=== PATIENT | female | born 1955 | race Caucasian/White ===

== ENCOUNTER 2018-04-15 07:41 | Inpatient (IN) ==
--- NOTE | 2018-04-15 09:17 | PROVIDER DOCUMENTATION ---
HPI-General Adult - General Chief Complaint: Fall Stated Complaint: FALL Time Seen by Provider: 04/15/18 08:48 Source: patient Allergies/Adverse Reactions: Patient Allergies Allergy/AdvReac Type Severity Reaction Status Date / Time sulfamethoxazole Allergy Intermediate POTASSIUM Verified 04/15/18 08:09 [From ] LEVELS trimethoprim [From ] Allergy Intermediate POTASSIUM Verified 04/15/18 08: 09 LEVELS Home Medications: Home Medication List Medication Instructions Recorded Confirmed Last Taken Type Cephalexin [Keflex] 500 mg PO BID #14 capsule 09/17/12 Unknown Rx - History of Present Illness -Gen Adult Nature of Presenting Problems: Presents by EMS after call, c/o pain to both knees R>L. Says that when she stood up, her knees just gave way. Has been feeling weak for 2 weeks, has fallenn several times. No head trauma, no LOC, no headache. No CP, no palpitations, no SOB, No N/V. Says that she buried her yesterday. Admits to not eating or drinking much. During exam, when bruising to chest was noted, said that began after fell sev days ago- a day or 2 later, was small, then got worse, and whole breast became purple Location of Pain/Injury: reports: other (bilat knees) Pain Radiation: reports: no radiation Quality of Pain: reports: aching Timing: reports: still present Modifying Factors: improves with: palpation Associated Symptoms: reports: weakness Similar Symptoms Previously?: Yes Recently seen or treated by another doctor?: No Review of Systems - Adult - REVIEW OF SYSTEMS - ADULT Constitutional: reports: see HPI Eyes: reports: no symptoms reported Ears, Nose, Mouth & Throat: reports: no symptoms reported Cardiovascular: reports: no symptoms reported Respiratory: reports: no symptoms reported Gastrointestinal: reports: no symptoms reported Genitourinary: reports: no symptoms reported Musculoskeletal: reports: see HPI Integumentary: reports: see HPI Neurological: reports: no symptoms reported Psychiatric: reports: no symptoms reported Endocrine: reports: no symptoms reported Hematologic/Lymphatic: reports: no symptoms reported Allergic/Immunologic: reports: no symptoms reported Past History - Adult - PAST MEDICAL HISTORY-ADULT Review of Records: reports: Medications Reviewed Major Childhood Illnesses: reports: denies history Physical Exam-General - PHYSICAL EXAM-ADULT Initial Vital Signs Reviewed: Yes - CONSTITUTIONAL General Appearance: appears well, alert, no apparent distress - EYES Eyes: PERRL/EOMI, pink conjunctivae - HEAD, EARS, NOSE, MOUTH & THROAT HENMT: normocephalic/atraumatic, moist mucous membranes, normal ENT inspection, pharynx normal - NECK Neck: full range of motion, supple, other (mild tenderness @ C7 area) - RESPIRATORY Respiratory: lungs clear, normal breath sounds, other (tenderness, ecchymosis to ant chest. R breast is purple) - CARDIOVASCULAR Cardiovascular: normal peripheral pulses, regular rate, rhythm, no gallop - GASTROINTESTINAL (ABDOMEN) Abdominal Exam: non tender, soft - MUSCULOSKELETAL Back Exam: normal inspection, no CVA tenderness, no vertebral tenderness Extremity: other (swelling, ecchymosis , tender below R patella. Has tenderness to bilat patella as well) - SKIN Integumentary: normal color, normal turgor, warm/dry, ecchymosis (see above notes) - NEUROLOGIC Neurologic: bowling ball molder II-XII nml as tested, grossly normal, no motor/sensory deficits - PSYCHIATRIC Psych/Mental Status: normal mood/affect, normal thought content, normal thought process, oriented x 3 Progress - PLAN OF CARE/RESULTS Progress/Plan/Lab Results: Vital Signs - 8 hr 04/15/18 08:04 Temperature 97.5 F L Pulse Rate 92 H Respiratory Rate 13 Blood Pressure 133/87 O2 Sat by Pulse Oximetry 100 Orders Category Date Time Status ED: Orthostatic Vital Signs (E as directed Care 04/15/18 09:07 Active Nursing- Obtain EKG once Care 04/15/18 09:05 Active CHEST-1 VIEW [RAD] Stat Exams 04/15/18 09:05 Ordered KNEE 3 VIEWS LEFT [RAD] Stat Exams 04/15/18 09:05 Ordered KNEE 3 VIEWS RIGHT [RAD] Stat Exams 04/15/18 09:05 Ordered CBC WITH DIFF [HEME] Stat Lab 04/15/18 09:05 Uncollected COMPREHENSIVE METABOLIC PANEL [CHEM] Stat Lab 04/15/18 09:05 Uncollected PROTIME WITH INR [COAG] Stat Lab 04/15/18 09:05 Uncollected PTT [COAG] Stat Lab 04/15/18 09:05 Uncollected EKG [EKG] Stat Ther 04/15/18 09:05 Ordered Result Diagrams: 04/15/18 09:17 04/15/18 09:17 - EKG 1 Time of EKG reading by physician:: 09:28 EKG Read and Signed by:: Reinaldo Hopkins EKG Interpretation (*Must complete 3 of following elements*): Abnormal Rate: 87 Rhythm: a fib QRS: RBB, other (LAFB) ST Wave: normal - XRAY 1 XRAY Study: Chest Impression: Normal 2 XRAY Study: Knee (Right) Impression: Abnormal (arthritic changes) 3 XRAY: Left XRAY Study: Knee (prox L fib fx, arthritic changes) - CONSULTS/PCP/HOSPITALIST Notification #1 *Consult/PCP/Hospitalist*: Shama Time Discussed: 15:00 Consult Disposition: Admit Departure - Departure Date of Disposition Decision: 04/15/18 Time of Disposition Decision: 10:21 DIAGNOSIS: Fall Qualifiers: Encounter type: initial encounter Qualified Code(s): W19.XXXA - Unspecified fall, initial encounter Contusion of right knee Qualifiers: Encounter type: initial encounter Qualified Code(s): S80.01XA - Contusion of right knee, initial encounter Left fibular fracture Qualifiers: Encounter type: initial encounter Fibula location: proximal Fracture type: closed Fracture morphology: other fracture Qualified Code(s): S82.832A - Other fracture of upper and lower end of left fibula, initial encounter for closed fracture Anemia Qualifiers: Anemia type: other cause Other causes of anemia: acute posthemorrhagic Qualified Code(s): D62 - Acute posthemorrhagic anemia Disposition: ADMITTED INPATIENT 09 Certified Medical Emergency: Emergent Condition: Stable Referrals and Follow-Ups: Kristopher Sesay MD [Primary Care Provider] - - Critical Care Note This patient required my direct & personal management of CC.: No Attestation - Physician/ APRIL Attestation Patient care was provided by Advanced Practice Provider:: No The physician spent face to face time with patient:: Yes Advanced Practice Provider documentation review:: Supervising physician onsite and consulted in the evaluation and care of this patient. The physician did have a face to face encounter with the patient.
[2018-04-15 09:39] LABS: BASO# 0.01 X1000 (0.0-0.2); BASO% 0.2 % (0.0-0.8); EOS# 0.15 X1000 (0.0-0.7); EOS% 2.5 % (0.0-10.0); HEMATOCRIT 24.1 % (37.0-47.0); HEMOGLOBIN 7.4 g/dL (12.0-16.0); LYMPH# 0.87 X1000 (1.2-3.4); LYMPH% 14.6 % (20.5-51.1); MCH 28.9 PG (27-31); MCHC 30.7 g/dL (33-37); MCV 94.1 FL (81-99); MONO# 0.49 X1000 (0.11-0.59); MONO% 8.2 % (1.7-9.3); MPV 9.8 FL (7.4-10.4); NEUT# 4.43 X1000 (1.4-6.5); NEUT% 74.5 % (42.2-75.2); PLT 249 X1000 (130-400); RBC 2.56 XMIL (4.2-5.4); RDW 13.3 % (11.5-14.5); WBC 5.95 X1000 (4.8-10.8)
[2018-04-15 10:00] LABS: INR 3.52; PROTIME 37.7 Seconds (11.0-16.0); PTT 46.8 Seconds (22.3-41.8)
[2018-04-15 10:05] LABS: ALB/GLOB RATIO 1.1; ALBUMIN 3.6 g/dL (3.5-5.0); CALCIUM 8.6 mg/dL (8.8-10.2); POTASSIUM 4.7 mmol/L (3.5-5.1); TOTAL BILIRUBIN 1.26 mg/dL (0.20-1.00); TOTAL PROTEIN 6.8 g/dL (6.3-8.3)
--- NOTE | 2018-04-15 10:13 | Diag Imaging Result Doc PS360 ---
EXAM: KNEE 3 VIEWS RIGHT HISTORY: fell TECHNIQUE: Right knee, three views COMPARISON: None. FINDINGS: No fracture. No dislocation. Prominent joint space narrowing. There is bony remodeling of the femoral condyles and tibial plateau. IMPRESSION: No acute bony injury. Severe arthritis. Electronically signed by Fredo London 04/15/2018 10:10 AM
--- NOTE | 2018-04-15 10:14 | Diag Imaging Result Doc PS360 ---
EXAM: KNEE 3 VIEWS LEFT HISTORY: fell TECHNIQUE: Left knee three views COMPARISON: 07/13/2011 the right knee. FINDINGS: There is a fracture to the proximal fibula. Minimal displacement. No dislocation. There is severe joint space narrowing with bony remodeling of the femoral condyles and tibial plateau. IMPRESSION: Proximal fibula fracture. Severe arthritis. Electronically signed by Fredo London 04/15/2018 10:12 AM
--- NOTE | 2018-04-15 10:16 | EKG Report ---
Test Performed on : 04/15/2018 09:18:39 AM Test Reason : syncope Blood Pressure : / mmHG Vent. Rate : 087 BPM Atrial Rate : 065 BPM P-R Int : 000 ms QRS Dur : 162 ms QT Int : 462 ms P-R-T Axes : 000 -47 014 degrees QTc Int : 555 ms Atrial fibrillation. Right bundle branch block Left anterior fascicular block Bifascicular block Abnormal ECG When compared with ECG of 22-JUL-2011 01:27, Atrial fibrillation. has replaced Sinus rhythm. Vent. rate has increased BY 31 BPM Left anterior fascicular block is now present Unconfirmed Result
--- NOTE | 2018-04-15 10:16 | Diag Imaging Result Doc PS360 ---
EXAM: CHEST-1 VIEW HISTORY: fell, syncope TECHNIQUE: Portable upright chest COMPARISON: 07/13/2011 FINDINGS: The lungs are well expanded. No contusion. No pneumothorax. The heart is mildly enlarged. The vessels are not distended. There are no infiltrates. No effusion identified. IMPRESSION: No injury. Electronically signed by Fredo London 04/15/2018 10:14 AM
[2018-04-15] MEDS ORDERED: NS 1,000 ML IV ONE (10:36)
[2018-04-15] MEDS ORDERED: MORPHINE IV PRN (10:36)
[2018-04-15] MEDS ORDERED: ZOFRAN PO PRN (10:36)
[2018-04-15] MEDS: NORCO-7.5 PO PRN ×2 (17:01→23:42)
[2018-04-15 20:03] LABS: HEMATOCRIT 27.6 % (37.0-47.0); HEMOGLOBIN 8.5 g/dL (12.0-16.0)
[2018-04-15] MEDS: ATIVAN PO SCH (21:13)
[2018-04-15] MEDS: SSD CREAM TOP SCH (21:14)
[2018-04-15] MEDS: BUSPAR PO SCH (21:14)
--- NOTE | 2018-04-16 01:43 | HISTORY AND PHYSICAL ---
CHIEF COMPLAINT: Weakness. HISTORY OF PRESENT ILLNESS: Ms. Mathew is a 63-year-old white female patient complaining of pain in both knees. The pain started early childhood special educator. Today, the patient went to the bathroom and while coming back the patient claimed her legs got weak and she fell on her knee. She started having pain in both of her knees, moderate pain, more pain with walking. The patient was also complaining of fall a days ago in a similar way when she was going to the bathroom and her legs got weak and she fell on her knee. Recently her , the patient was not feeling well. Oral intake was poor. The patient went to the emergency room, her blood count revealed hemoglobin of 7.4, hematocrit of 24.1. Electrolytes did reveal acute kidney injury, with a BUN of 47 and creatinine of 2. Because of her weakness, anemia and acute kidney injury, the patient also had a significant bruise cheryl and ecchymosis on the right breast and chest wall, the patient is morbidly obese we decided to admit the patient for further care. The patient denied any head injury. No fever. She did have chills. No runny nose, stuffy nose, sinus drainage. Denied any dysphagia or odynophagia. No unusual cough or expectoration. No vague abdominal pain. No nausea or vomiting. Denied any diarrhea, blood or mucus in the stool. Arthritic pain in the knee, at times in the lower back. The patient had significant ecchymosis and bruise cheryl on the right breast and the chest wall. No further history available at this time. ALLERGIES: Sulfa and Bactrim. PAST MEDICAL HISTORY: Significant for hypertension, paroxysmal atrial fibrillation, osteoarthritis, morbid obesity, gastritis, stasis dermatitis, anemia, chronic kidney disease. The patient had bariatric surgery done in the past. SOCIAL HISTORY: . Nonsmoker. Denied alcohol or substance abuse. Needs minimal assistance in activities of daily living. FAMILY HISTORY: Noncontributory. PHYSICAL EXAMINATION: GENERAL: Elderly white female patient, morbidly obese, in mild distress. VITAL SIGNS: Blood pressure on admission 186/84, pulse 84, respirations 23, temperature 98 degrees. SKIN: The patient does have ecchymosis and bruise cheryl on the right chest wall and right breast. The patient had bruise cheryl on the knee. HEENT: Head is atraumatic and normocephalic. Catlett conjunctivae. Anicteric sclerae. Extraocular muscle movement normal. Fundus cannot be penetrated. Good oral hygiene. No tonsillopharyngeal congestion or exudate. Ears and nose benign. NECK: Supple. No JVD, thyromegaly or lymphadenopathy. CHEST: Bibasilar crepitation. No rales. CARDIOVASCULAR: S1 and S2 heard, 2/6 systolic murmur at the apex. ABDOMEN: Soft, globular. Bowel sounds present. EXTREMITIES: No cyanosis, clubbing. Disuse atrophy of the lower limbs. Evidence of stasis dermatitis in both the legs. Crepitation of both the knee joints. ENVIRONMENTAL TECHNICAL OFFICER: Alert, awake. Answering questions fairly well. Able to move all 4 limbs. LABORATORY DATA: Hemoglobin 11.4, hematocrit 24.1, WBC count 5.95, platelet count 249,000, PT/INR was 3.52, PTT is 46.8. Electrolytes: BUN 47, creatinine was 2, calcium 8.6. IMAGING: Her x-ray of the knee revealed right knee severe arthritis. Left knee proximal fibula fracture and severe arthritis. Chest x-ray no pneumothorax, no contusion. CONSIDERATION: 1. The patient admitted with acute blood-loss anemia, weakness most likely due to anemia multifactorial, anemia of chronic disease and blood loss anemia. 2. Acute on chronic kidney disease. 3. Hypertension. 4. Frequent falls. 5. Osteoarthritis. 6. Gastritis. 7. Paroxysmal atrial fibrillation. PLAN: The overall plan was discussed at length with the patient and se is in agreement. We will admit the patient. Blood transfusion, gentle hydration, telemetry monitoring. Continue home medicine. The patient does have a history of depression, we will continue her antidepressant. cc: Kristopher Sesay MD
--- NOTE | 2018-04-16 02:47 | CONSULTATION ---
DATE OF CONSULTATION: 04/15/2018 HISTORY OF PRESENT ILLNESS: The patient reported to the emergency department today complaining of knee pain. She states she transferred from her power chair and her knee gave way today when she transferred. She has been feeling weak for about 2 weeks. She has had several falls in that time span. She denies chest pain, shortness of breath, nausea, vomiting, and palpitations. She denies headaches and loss of consciousness. Emergency department performed x-rays of the knee and it shows a proximal left fibular fracture. ALLERGIES: The patient is allergic to Bactrim. REVIEW OF SYSTEMS: A 14-point review of systems was performed and listed in HPI. PAST MEDICAL HISTORY: 1. 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 2. Diabetes. 3. High blood pressure. 4. Stasis dermatitis. 5. Atrial fibrillation. 6.Gastritis 7. Obesity 8. CKD 9. Depression PHYSICAL EXAMINATION: General: The patient is awake, alert and oriented. HEENT: Head is normocephalic and atraumatic. Mucous membranes are moist. Neck: Supple. Respiratory: There is equal chest expansion. Cardiovascular: There is normal regular rate and rhythm. Gastrointestinal: Abdomen is soft and nontender. Extremities: The left knee is mildly swollen. There is mild lateral joint line tenderness. There is mild tenderness near the proximal fibula. There is a questionable Errol's sign. There is a negative Sara test. There is notable swelling to the bilateral lower extremities. There is a negative Homans sign at this time bilaterally. There is good pedal pulses. There is a mild amount of redness noted to the left lower extremity. ASSESSMENT: Left proximal fibular fracture. PLAN: We will plan on nonoperative treatment and consult PT for WBAT LLE. She can follow up in the office in about 2 weeks for follow up x-rays. Thanks for the consult. Dictated by FLORI Parson for Mike Zhang MD cc: FLORI Parson MD Bharat K. Vakharia, MD MTDD
[2018-04-16] MEDS ORDERED: PNEUMOVAX 23 IM ONE (04:42)
[2018-04-16 06:14] LABS: BASO# 0.01 X1000 (0.0-0.2); BASO% 0.2 % (0.0-0.8); EOS% 4.3 % (0.0-10.0); HEMATOCRIT 25.9 % (37.0-47.0); LYMPH# 1.23 X1000 (1.2-3.4); LYMPH% 26.2 % (20.5-51.1); MCH 28.8 PG (27-31); MCHC 30.9 g/dL (33-37); MCV 93.2 FL (81-99); MONO% 8.5 % (1.7-9.3); NEUT# 2.86 X1000 (1.4-6.5); NEUT% 60.8 % (42.2-75.2); PLT 244 X1000 (130-400); RBC 2.78 XMIL (4.2-5.4); RDW 14.6 % (11.5-14.5)
[2018-04-16 06:27] LABS: INR 3.7; PROTIME 39.2 Seconds (11.0-16.0)
[2018-04-16 06:50] LABS: AGAP 8; ALBUMIN 3.1 g/dL (3.5-5.0); ALKALINE PHOSPHATASE 68 U/L (32-104); BUN 38 mg/dL (8-22); CALCIUM 8.3 mg/dL (8.8-10.2); CHLORIDE 108 mmol/L (98-107); CHOLESTEROL 110 mg/dL (0-200); COSMO 288; CREATININE 1.5 mg/dL (0.5-0.9); ESTIMATED GFR 35; GLUCOSE 94 mg/dL (70-104); GOT 19 U/L (10-30); GPT 8 U/L (10-36); HDL 38 mg/dL (45-65); LDL 59 mg/dL; MAGNESIUM 1.7 mg/dL (1.5-2.7); POTASSIUM 4.3 mmol/L (3.5-5.1); SODIUM 140 mmol/L (136-145); TCO2 24 mmol/L (25-35); TOTAL BILIRUBIN 0.92 mg/dL (0.20-1.00); TOTAL PROTEIN 6.1 g/dL (6.3-8.3); TRIGLYCERIDES 65 mg/dL (35-135); VLDL 13 mg/dL
[2018-04-16 06:53] LABS: HEMOGLOBIN A1C 5.3 % (4.8-6.0)
[2018-04-16 06:56] LABS: FREE T4 1.55 ng/dL (0.93-1.70)
[2018-04-16] MEDS: SYNTHROID PO SCH (06:57)
[2018-04-16 06:59] LABS: TSH 5.46 uIUmL (0.27-4.20)
[2018-04-16] MEDS: MYCOSTATIN POWDER TOP SCH (09:00)
[2018-04-16] MEDS: BUSPAR PO SCH ×2 (09:25→21:59)
[2018-04-16] MEDS: NORCO-7.5 PO PRN ×2 (09:25→23:50)
[2018-04-16] MEDS: CORDARONE PO SCH (09:25)
[2018-04-16] MEDS: ATIVAN PO SCH ×2 (09:25→21:59)
[2018-04-16] MEDS: CELEXA PO SCH (09:25)
[2018-04-16] MEDS: NORVASC PO SCH (09:25)
[2018-04-16] MEDS: SSD CREAM TOP SCH ×2 (09:26→22:01)
--- NOTE | 2018-04-16 09:28 | PROGRESS NOTE ---
DATE: 04/16/2018 SUBJECTIVE: The patient is a 63-year-old female who is 1 day status post fall sustaining a left proximal fibular fracture. The patient does have severe degenerative arthritis and multiple medical problems. She uses a power chair for mobilization and does have limited mobility. PHYSICAL EXAMINATION: The patient's right knee has an old subacute ecchymosis along the anteromedial aspect of the knee. She has diffuse tenderness to palpation. Left knee has diffuse tenderness throughout the knee as well. Compartments are soft. ASSESSMENT: 1. Left proximal fibular fracture. 2. Osteoarthritis bilateral knees. PLAN: At this point, we will treat patient symptomatically and allow her to weight bear as tolerated. I will recommend a repeat x-ray in 10-14 days. cc: MD Kristopher Montanez MD
--- NOTE | 2018-04-16 11:49 | PROGRESS NOTE ---
DATE: 04/16/2018 SUBJECTIVE: Ms. Mathew, who is a 63-year-old, obese white female has a fracture of the left Proximal tibia and has osteoarthritis in both knees. She was given 2 units of packed RBCs yesterday. Hemoglobin today is 8 g; it has dropped from 8.5 to 8 g. We are going to repeat her CBC in the morning. White count is 4.7. She has renal failure with BUN of 38 and creatinine of 1.5. She is anemic. She has chronic kidney disease. At present, her vital signs are stable. She had some bleeding in the right chest wall including the right breast. Her lungs are clear. Heart sounds are normal. She will repeat her electrolytes, as well as CBC tomorrow. cc: MD Kristopher Soto MD
[2018-04-16 17:47] LABS: URINE SOURCE CLEAN CATCH
[2018-04-16 17:51] LABS: BILIRUBIN URINE NEGATIVE (NEGATIVE); BLOOD URINE NEGATIVE (NEGATIVE); COLOR YELLOW; GLUCOSE URINE NEGATIVE (NEGATIVE); KETONE URINE NEGATIVE (NEGATIVE); LEUKOCYTES URINE SMALL (NEGATIVE); NITRITE URINE POSITIVE (NEGATIVE); PH URINE 5.5; PROTEIN URINE TRACE mg/dL (NEGATIVE); SP GRAVITY URINE 1.022; TURBIDITY URINE CLEAR (CLEAR); UR EPITHELIAL CELLS <10 /HPF (<10); URINE BACTERIA 4+ /HPF; URINE RBC <10 /HPF (<10); URINE WBC <10 /HPF (<10); UROBILINOGEN URINE 2 mg/dL (NORMAL)
[2018-04-17] MEDS: SYNTHROID PO SCH ×2 (05:42→06:55)
[2018-04-17 06:46] LABS: BASO# 0.01 X1000 (0.0-0.2); BASO% 0.2 % (0.0-0.8); EOS# 0.21 X1000 (0.0-0.7); EOS% 4.7 % (0.0-10.0); HEMATOCRIT 27.7 % (37.0-47.0); HEMOGLOBIN 8.3 g/dL (12.0-16.0); LYMPH# 1.24 X1000 (1.2-3.4); LYMPH% 27.9 % (20.5-51.1); MCH 28.2 PG (27-31); MCV 94.2 FL (81-99); MONO# 0.45 X1000 (0.11-0.59); MONO% 10.1 % (1.7-9.3); MPV 9.9 FL (7.4-10.4); NEUT# 2.54 X1000 (1.4-6.5); NEUT% 57.1 % (42.2-75.2); PLT 265 X1000 (130-400); RBC 2.94 XMIL (4.2-5.4); RDW 14.5 % (11.5-14.5); WBC 4.45 X1000 (4.8-10.8)
[2018-04-17 06:48] LABS: CALCIUM 8.3 mg/dL (8.8-10.2); CREATININE 1.3 mg/dL (0.5-0.9); POTASSIUM 4.4 mmol/L (3.5-5.1)
[2018-04-17] MEDS: NORVASC PO SCH (09:33)
[2018-04-17] MEDS: BUSPAR PO SCH ×2 (09:33→20:21)
[2018-04-17] MEDS: CORDARONE PO SCH (09:33)
[2018-04-17] MEDS: CELEXA PO SCH (09:33)
[2018-04-17] MEDS: NORCO-7.5 PO PRN ×2 (09:37→20:20)
[2018-04-17] MEDS: ATIVAN PO SCH ×2 (09:37→20:21)
--- NOTE | 2018-04-17 11:59 | PROGRESS NOTE ---
DATE: 04/17/2018 Ms. Mathew is doing well except for some pain in the leg, generalized weakness. Her vital signs are stable. She has severe anemia. White count is 4.45, hemoglobin is 8.3, hematocrit 27.7. I am going to repeat the lab values again in the morning. cc: MD Kristopher Soto MD
[2018-04-17] MEDS: SSD CREAM TOP SCH ×2 (13:30→20:21)
[2018-04-17] MEDS: MYCOSTATIN POWDER TOP SCH ×3 (16:15→20:21)
[2018-04-18] MEDS: SYNTHROID PO SCH ×2 (05:53→06:12)
[2018-04-18 06:11] LABS: BASO# 0.01 X1000 (0.0-0.2); BASO% 0.2 % (0.0-0.8); EOS# 0.27 X1000 (0.0-0.7); EOS% 5.8 % (0.0-10.0); HEMATOCRIT 28.4 % (37.0-47.0); HEMOGLOBIN 8.5 g/dL (12.0-16.0); LYMPH# 1.27 X1000 (1.2-3.4); LYMPH% 27.5 % (20.5-51.1); MCH 28.3 PG (27-31); MCHC 29.9 g/dL (33-37); MCV 94.7 FL (81-99); MONO# 0.41 X1000 (0.11-0.59); MONO% 8.9 % (1.7-9.3); MPV 9.6 FL (7.4-10.4); NEUT# 2.66 X1000 (1.4-6.5); NEUT% 57.6 % (42.2-75.2); PLT 281 X1000 (130-400); RDW 14.4 % (11.5-14.5); WBC 4.62 X1000 (4.8-10.8)
[2018-04-18 06:28] LABS: CALCIUM 8.2 mg/dL (8.8-10.2); CREATININE 1.5 mg/dL (0.5-0.9); POTASSIUM 4.5 mmol/L (3.5-5.1)
[2018-04-18] MEDS ORDERED: LOVENOX SUBQ SCH (06:45)
--- NOTE | 2018-04-18 06:55 | PROGRESS NOTE ---
DATE: 04/18/2018 SUBJECTIVE: Ms. Mathew is feeling better. The patient does have pain in the knee and leg, and at times unsteady gait. It is hard for the patient to get up and walk. No nausea or vomiting. Denied unusual shortness of breath. No dysuria. Denied abdominal pain. The patient does have knee pain. No unusual bleeding. Urine culture growing gram-negative rods. OBJECTIVE: Vital signs: Noted. Neck: Supple. No JVD. Lungs: Bilateral good air entry present. Cardiovascular system: S1 and S2 heard. 2/6 systolic murmur at the apex. Abdomen: Soft, globular. Bowel sounds present. Crepitation of both knee joints. The patient does have bruise cheryl on the legs and stasis dermatitis of both legs. Central nervous system: Alert, awake. Able to move all 4 limbs. Answering questions fairly well. ASSESSMENT AND PLAN: Patient admitted with acute on chronic blood-loss anemia and chronic kidney disease. She had fracture of the left fibula, osteoarthritis of the knee, atrial fibrillation, found to have urinary tract infection, hypothyroidism, and situational depression. The patient lives at home by herself. I think she will be benefited from short-term rehab as her recently. She needs help to get up and walk. I am going to recommend short-term rehab with her limitations of new fracture and weakness. The patient does have a large bruise cheryl on the chest wall. I am going to treat her UTI and continue the rest of the treatment with close observation. Start patient back on her Coumadin and start her on iron supplement. Overall plan discussed with the patient and she is in agreement. cc: Kristopher Sesay MD
[2018-04-18] MEDS: ROCEPHIN 1 GM in NS 50 ML IV SCH (08:12)
[2018-04-18] MEDS: NORVASC PO SCH (09:21)
[2018-04-18] MEDS: ATIVAN PO SCH ×2 (09:22→22:39)
[2018-04-18] MEDS: BUSPAR PO SCH ×2 (09:22→22:39)
[2018-04-18] MEDS: CELEXA PO SCH (09:23)
[2018-04-18] MEDS: CORDARONE PO SCH (09:23)
[2018-04-18] MEDS: MYCOSTATIN POWDER TOP SCH (09:24)
[2018-04-18] MEDS: SSD CREAM TOP SCH ×2 (09:24→22:40)
[2018-04-18] MEDS: ICAR-C PO SCH ×2 (09:32→22:39)
[2018-04-18] MEDS: ELIQUIS PO SCH ×2 (09:32→22:39)
[2018-04-18] MEDS ORDERED: COUMADIN PO SCH (21:00)
[2018-04-18] MEDS: NORCO-7.5 PO PRN (22:39)
[2018-04-19] MEDS: SYNTHROID PO SCH (06:25)
[2018-04-19] MEDS: NORCO-7.5 PO PRN ×2 (06:25→22:00)
[2018-04-19] MEDS ORDERED: DULCOLAX PR ONE (06:35)
[2018-04-19] MEDS ORDERED: MILK OF MAGNESIA PO ONE (06:35)
--- NOTE | 2018-04-19 07:41 | DISCHARGE SUMMARY ---
ADMISSION DATE: 04/15/2018 DISCHARGE DATE: FINAL DISCHARGE DIAGNOSES: 1. Blood-loss anemia. 2. Urinary tract infection. 3. Fracture of left fibula. 4. Osteoarthritis. 5. Paroxysmal atrial fibrillation. 6. Morbid obesity. 7. Hypothyroidism. 8. Constipation. 9. Chronic kidney disease. 10. History of gastric bypass in the past. 11. Situational depression. HOSPITAL COURSE: Ms. Mathew is a 63-year-old, white, female patient admitted with status post fall. The patient was feeling weak. The patient had multiple bruise peres. She had pain in her knee. Not able to get up by herself. She recently lost her . Her hemoglobin was low. The patient was symptomatic. We evaluated the patient and decided to admit her. The patient received 2 units of packed RBC. Her hemoglobin and hematocrit improved. Patient is feeling little stronger. Patient had a large bruise cheryl on the chest wall on the right side, also on her breast and both the knees. She had significant arthritis of both the knees. Found to have fracture of the left fibula. The patient was admitted to a telemetry bed. She was started on antibiotics. Patient lives by herself. I think she will be benefited from short-term rehab. The patient is in agreement. She was complaining of being constipated. I started patient on MiraLAX. Overall, patient received maximum benefit of hospitalization and I am planning to discharge her to a skilled nursing for rehab. PHYSICAL EXAMINATION: Vital Signs: Her vital signs noted. Neck: Supple. No JVD. Lungs: Bibasilar crepitation. Heart: S1 and S2 heard. Abdomen: Soft, globular. Bowel sounds present. LIGHTNING ROD INSTALLER: Alert, awake. Answering questions fairly well. DIAGNOSTIC DATA: Chest x-ray, lungs are well-expanded. No contusion. No pneumothorax. Heart was mildly enlarged. No injury. LABORATORY DATA: Done yesterday, hemoglobin 8.5, hematocrit 28.4, WBC count 4.62, platelet count 281,000. BUN 34, creatinine 1.5. Patient does have chronic kidney disease. Urinalysis, 4+ bacteria. Urine culture grew E. coli which was sensitive to Macrobid. Overall, her x-ray on her knee did reveal severe arthritis. The one on her left knee revealed proximal fibula fracture. PLAN: Overall, patient received maximum benefit of hospitalization. The patient has a hard time coming to the office for a prothrombin time check. I changed her Coumadin to Eliquis. We will treat her with Macrobid. Gave her pain medicine. Fall precautions. Follow up with orthopedics as scheduled. Physical therapy. Overall discharge condition satisfactory. Discharge plan discussed with the patient. She is in agreement. cc: Kristopher Sesay MD
[2018-04-19] MEDS: NORVASC PO SCH (09:38)
[2018-04-19] MEDS: ATIVAN PO SCH ×2 (09:38→23:24)
[2018-04-19] MEDS: BUSPAR PO SCH ×2 (09:38→22:00)
[2018-04-19] MEDS: ELIQUIS PO SCH ×2 (09:38→22:00)
[2018-04-19] MEDS: CORDARONE PO SCH (09:38)
[2018-04-19] MEDS: ICAR-C PO SCH ×2 (09:38→22:00)
[2018-04-19] MEDS: CELEXA PO SCH (09:38)
[2018-04-19] MEDS: ROCEPHIN 1 GM in NS 50 ML IV SCH (09:39)
[2018-04-19] MEDS: MYCOSTATIN POWDER TOP SCH (10:26)
[2018-04-19] MEDS: SSD CREAM TOP SCH (10:26)
[2018-04-20] MEDS: ATIVAN PO SCH ×2 (00:47→10:16)
[2018-04-20] MEDS: SSD CREAM TOP SCH ×2 (00:47→12:01)
[2018-04-20] MEDS: SYNTHROID PO SCH (06:13)
--- NOTE | 2018-04-20 07:09 | PROGRESS NOTE ---
DATE: 04/20/2018 SUBJECTIVE: Ms. Mathew's discharge was canceled because of unavailability of a rehab place. The patient is doing fair. Yesterday, she was able to sit on the side of the bed and move her leg. She did have a good bowel movement. She denied any fever or chills. Oral intake is fairly well. No nausea or vomiting. No diarrhea. The patient still had difficulty getting up. OBJECTIVE: Vital Signs: Blood pressure 116/59, pulse 73, respirations 20, temperature 98.4 degrees. Neck: Supple. No JVD. Lungs: Bibasilar crepitations. Heart: S1 and S2 heard. A 2/6 systolic murmur at the apex. Abdomen: Soft, globular. Bowel sounds present. LEAD SECTION SUPERVISOR: Alert, awake. Able to move all 4 limbs. PROBLEM LIST: 1. Diffuse osteoarthritis, more so of the knee. 2. Fracture of the left fibula, upper end. 3. Morbid obesity. 4. Blood-loss anemia. 5. The patient does have a urinary tract infection. 6. Chronic kidney disease. 7. Paroxysmal atrial fibrillation. PLAN: We will continue current treatment. I am going to discharge the patient as soon as a rehab bed is available. Encouraged weight reduction. Fall precautions. cc: Kristopher Sesay MD
[2018-04-20] MEDS: ROCEPHIN 1 GM in NS 50 ML IV SCH (08:18)
[2018-04-20] MEDS ORDERED: NS 500 ML ONE (08:20)
[2018-04-20] MEDS: BUSPAR PO SCH (10:16)
[2018-04-20] MEDS: NORVASC PO SCH (10:16)
[2018-04-20] MEDS: ELIQUIS PO SCH (10:16)
[2018-04-20] MEDS: CELEXA PO SCH (10:16)
[2018-04-20] MEDS: CORDARONE PO SCH (10:16)
[2018-04-20] MEDS: ICAR-C PO SCH (10:16)
[2018-04-20 11:33] VITALS: BP 121/63
[2018-04-20] MEDS: MYCOSTATIN POWDER TOP SCH (12:00)
[2018-04-20] MEDS: NORCO-7.5 PO PRN (13:28)
== END 2018-04-20 16:15 | DRG 812 ==
LOC: SUPCPDRO → ED 07:41 → EDIPHOLD 11:07 → 4N 21:25
PROVIDERS: ADMIT Internal Medicine; ATTEND Internal Medicine
CPT/HCPCS: 36430; 71010; 71045; 73562; 80048; 80053; 80061; 81001; 83036; 83735; 84439; 84443; 85014; 85018; 85025; 85610; 85730; 86850; 86900; 86901; 86920; 87077; 87088; 87186; 90732; 93005; 94761; 97110; 97162; 97530; 99285; A9270; J0696; J7030; J7040; P9016

== ENCOUNTER 2018-05-01 01:27 | Inpatient (IN) ==
--- NOTE | 2018-05-01 03:39 | PROVIDER DOCUMENTATION ---
HPI-General Adult - General Chief Complaint: Weakness Stated Complaint: weakness Time Seen by Provider: 05/01/18 03:02 Source: patient, old records Allergies/Adverse Reactions: Patient Allergies Allergy/AdvReac Type Severity Reaction Status Date / Time sulfamethoxazole Allergy Intermediate POTASSIUM Verified 04/15/18 08:09 [From ] LEVELS trimethoprim [From ] Allergy Intermediate POTASSIUM Verified 04/15/18 08: 09 LEVELS Home Medications: Home Medication List Medication Instructions Recorded Confirmed Last Taken Type Amiodarone HCl 200 mg PO DAILY 04/15/18 04/16/18 04/14/18 History Amlodipine Besylate 5 tab PO DAILY 04/15/18 04/16/18 04/14/18 History Buspirone HCl 15 tab PO BID 04/15/18 04/16/18 04/14/18 History Citalopram Hydrobromide 10 mg PO DAILY 04/15/18 04/16/18 04/14/18 History [Citalopram HBr] Levothyroxine [Synthroid] 50 mcg PO DAILY 04/15/18 04/16/18 04/14/18 History Nystatin 1 applicatn TOP DAILY 04/15/18 04/16/18 04/14/18 History Silver Sulfadiazine Cream [Ssd 1 applicatn TOP BID 04/15/18 04/16/18 04/15/18 History Cream] Apixaban [Eliquis] 5 mg PO BID tablet 04/19/18 Unknown Rx Hydrocodone/Acetaminophen [[place] 1 each PO TID PRN #30 tablet 04/19/18 Unknown Rx 7.5-325 Tablet] Iron Carbonyl/Ascorbic Acid 1 each PO BID tablet 04/19/18 Unknown Rx [Icar-C] Nitrofurantoin [place]/Macrocryst 100 mg PO BID #12 capsule 04/19/18 Unknown Rx [Macrobid] - History of Present Illness -Gen Adult Nature of Presenting Problems: 63 yo terribly obese WF apparently suffered a left tibia fracture on Apr 15 , was transferred to rehab but signed out yesterday. Shortly after arriving home she became very week to the point that she had to be helped to the bathroom by her son. She nearly fell a second time prompting a call to EMS. She has a history of morbid obesity and in fact weighted 529 punds at one time., She has had several SVTs and now has an IVC filter and was on Coumadin for 10 years but this was changed to Eliquis 5 mg bid a week ago Review of Systems - Adult - REVIEW OF SYSTEMS - ADULT Constitutional: reports: weight loss Eyes: reports: no symptoms reported Ears, Nose, Mouth & Throat: reports: no symptoms reported Cardiovascular: reports: see HPI. denies: chest pain, edema, heart murmur, irregular heart rate Respiratory: reports: no symptoms reported, dyspnea on exertion. denies: chronic cough Gastrointestinal: reports: no symptoms reported Genitourinary: reports: no symptoms reported Musculoskeletal: reports: no symptoms reported Integumentary: reports: no symptoms reported Neurological: reports: no symptoms reported Psychiatric: reports: no symptoms reported Endocrine: denies: cold intolerance Hematologic/Lymphatic: reports: easy bruising Allergic/Immunologic: reports: no symptoms reported Past History - Adult - PAST MEDICAL HISTORY-ADULT Review of Records: reports: Old Records Reviewed, Nursing Assessment Review, Medications Reviewed Major Childhood Illnesses: reports: denies history Musculoskeletal: reports: arthritis, orthopedic injury, other (Unable to walk due to arthritis) Physical Exam-General - PHYSICAL EXAM-ADULT Initial Vital Signs Reviewed: Yes - CONSTITUTIONAL General Appearance: appears well, alert, no apparent distress - EYES Eyes: PERRL/EOMI, pink conjunctivae - HEAD, EARS, NOSE, MOUTH & THROAT HENMT: normocephalic/atraumatic, moist mucous membranes, dental decay - NECK Neck: non-tender, full range of motion - RESPIRATORY Respiratory: chest non-tender, lungs clear, normal breath sounds - CARDIOVASCULAR Cardiovascular: normal peripheral pulses, regular rate, rhythm, no edema - GASTROINTESTINAL (ABDOMEN) Abdominal Exam: normal bowel sounds, non tender, soft - GENITOURINARY Rectal Exam: normal exam Hemoccult Exam: other (black stool, heme pending) - MUSCULOSKELETAL Back Exam: no CVA tenderness Extremity: non-tender, swelling. negative: normal range of motion, normal gait - SKIN Integumentary: normal color, normal turgor, warm/dry - NEUROLOGIC Neurologic: grossly normal - PSYCHIATRIC Psych/Mental Status: normal mood/affect, normal thought content, normal thought process Progress - PLAN OF CARE/RESULTS Progress/Plan/Lab Results: Vital Signs - 8 hr 05/01/18 01:48 Pulse Rate 88 Respiratory Rate 17 Blood Pressure 144/71 O2 Sat by Pulse Oximetry 98 Orders Category Date Time Status BMP [BASIC METABOLIC PANEL] [CHEM] Stat Lab 05/01/18 03:12 Uncollected CBC WITH ELECTRONIC DIFF [HEME] Stat Lab 05/01/18 03:12 Uncollected D-DIMER [COAG] Stat Lab 05/01/18 03:12 Ordered EKG [EKG] Stat Ther 05/01/18 01:40 Ordered Result Diagrams: 05/01/18 05:28 05/01/18 05:28 - REASSESSMENT Reassessment #1 Time Reassessed: 08:46 (old records reviewed) Status: improving (seen and examined by me. Case discussed with Dr. Johnson at shift change. Weakness since last night. Patient has hx of DVTs on ELiquis. Vitals are normal, patient is anemic with renal insufficieny. Will check stool to make sure no GI bleed. D-Dimer elevation is to be expected with prior DVTs. Will also check cardiac enzymes) Reassessment Comment: Old chart reviewed, patient recently admitted to Dr. Sesay for fall, - EKG 1 Time of EKG reading by physician:: 08:47 EKG Read and Signed by:: Diomedes Humphries EKG Interpretation (*Must complete 3 of following elements*): Abnormal Rate: 84 Rhythm: atrial fibrillation [place]: normal QRS: other (bifascicular block) ST Wave: non-specific ST changes Prior EKG Comparison: unchanged from prior (04/18/18) Comments: EKG originally read at [address] Johnson, no documentation in chart - XRAY 1 XRAY Study: Chest Impression: Abnormal (Read by me at 1019, CM with failure, wide mediastinum) - CT/MRI 1 CT Study: Head Impression: Abnormal, See EMR Report (EXAM: CT HEAD W/O CONTRAST - 05/01/2018 HISTORY: weakness TECHNIQUE: CT head without contrast COMPARISON: None. FINDINGS: There is no evidence of intracranial hemorrhage, mass effect, midline shift, or hydrocephalus. There is mild prominence of the cisterna magna compatible with congenital variant or anomaly. There are small low-density areas of the bilateral occipital regions which may relate to small infarcts. These are nonspecific ages but do not appear acute. There is no acute-appearing infarct identified, although acute infarcts may not be immediately visible. There is no evidence of skull fracture. IMPRESSION: Apparent small bilateral occipital infarct of nonspecific age. No hemorrhage or mass effect. This exam was performed using automated exposure control, adjustment of mA or kV according to patient size, and/or use of iterative reconstruction technique. Electronically signed by Eduard Reeder 05/01/2018 9:44 AM) - CONSULTS/PCP/HOSPITALIST Notification #1 *Consult/PCP/Hospitalist*: Tsang Time Discussed: 10:18 Consult Disposition: Admit - CHANGE OF SHIFT REPORT (ED Provider) 1 Report Given and Care Transferred to:: Dr Humphries Time of Transfer: 07:25 Items Pending: Other (Consider V/Q scan or admit for additional studies) Departure - Departure Date of Disposition Decision: 05/01/18 Time of Disposition Decision: 10:20 DIAGNOSIS: Generalized muscle weakness, Frequent falls, Anemia due to chronic blood loss, Renal insufficiency syndrome Congestive heart failure (CHF) Qualifiers: Heart failure type: combined systolic and diastolic Heart failure chronicity: acute on chronic Qualified Code(s): I50.43 - Acute on chronic combined systolic (congestive) and diastolic (congestive) heart failure Disposition: ADMITTED INPATIENT 09 Certified Medical Emergency: Emergent Condition: Fair Referrals and Follow-Ups: Kristopher Sesay MD [Primary Care Provider] - - Critical Care Note This patient required my direct & personal management of CC.: No Attestation - Physician/ APRIL Attestation Patient care was provided by Advanced Practice Provider:: No The physician spent face to face time with patient:: Yes Advanced Practice Provider documentation review:: Supervising physician onsite and consulted in the evaluation and care of this patient. The physician did have a face to face encounter with the patient.
[2018-05-01 05:37] LABS: BASO# 0.01 X1000 (0.0-0.2); BASO% 0.2 % (0.0-0.8); EOS# 0.18 X1000 (0.0-0.7); EOS% 3.3 % (0.0-10.0); HEMATOCRIT 30.3 % (37.0-47.0); HEMOGLOBIN 9.1 g/dL (12.0-16.0); LYMPH# 1.09 X1000 (1.2-3.4); MCH 29.1 PG (27-31); MCV 96.8 FL (81-99); MONO# 0.36 X1000 (0.11-0.59); MONO% 6.6 % (1.7-9.3); MPV 9.3 FL (7.4-10.4); NEUT# 3.82 X1000 (1.4-6.5); NEUT% 69.9 % (42.2-75.2); PLT 262 X1000 (130-400); RBC 3.13 XMIL (4.2-5.4); RDW 15.7 % (11.5-14.5); WBC 5.46 X1000 (4.8-10.8)
[2018-05-01 06:01] LABS: CALCIUM 8.7 mg/dL (8.8-10.2); CREATININE 1.8 mg/dL (0.5-0.9); POTASSIUM 4.3 mmol/L (3.5-5.1)
[2018-05-01] MEDS ORDERED: NS 1,000 ML IV ONE (08:45)
--- NOTE | 2018-05-01 09:46 | Diag Imaging Result Doc PS360 ---
EXAM: CT HEAD W/O CONTRAST - 05/01/2018 HISTORY: weakness TECHNIQUE: CT head without contrast COMPARISON: None. FINDINGS: There is no evidence of intracranial hemorrhage, mass effect, midline shift, or hydrocephalus. There is mild prominence of the cisterna magna compatible with congenital variant or anomaly. There are small low-density areas of the bilateral occipital regions which may relate to small infarcts. These are nonspecific ages but do not appear acute. There is no acute-appearing infarct identified, although acute infarcts may not be immediately visible. There is no evidence of skull fracture. IMPRESSION: Apparent small bilateral occipital infarct of nonspecific age. No hemorrhage or mass effect. This exam was performed using automated exposure control, adjustment of mA or kV according to patient size, and/or use of iterative reconstruction technique. Electronically signed by Eduard Reeder 05/01/2018 9:44 AM
[2018-05-01 09:58] LABS: URINE SOURCE CATH
[2018-05-01 10:03] LABS: BILIRUBIN URINE NEGATIVE (NEGATIVE); BLOOD URINE NEGATIVE (NEGATIVE); COLOR YELLOW; GLUCOSE URINE NEGATIVE (NEGATIVE); KETONE URINE NEGATIVE (NEGATIVE); LEUKOCYTES URINE NEGATIVE (NEGATIVE); NITRITE URINE NEGATIVE (NEGATIVE); PH URINE 5.5; PROTEIN URINE TRACE mg/dL (NEGATIVE); SP GRAVITY URINE 1.028; TURBIDITY URINE HAZY (CLEAR); UROBILINOGEN URINE 3 mg/dL (NORMAL)
[2018-05-01 10:07] LABS: UR EPITHELIAL CELLS <10 /HPF (<10); URINE BACTERIA NEGATIVE /HPF; URINE WBC <10 /HPF (<10)
[2018-05-01] MEDS ORDERED: ZOFRAN PO PRN (10:21)
[2018-05-01] MEDS ORDERED: TYLENOL PO PRN (10:21)
--- NOTE | 2018-05-01 11:32 | Diag Imaging Result Doc PS360 ---
EXAM: CHEST-PORTABLE - 05/01/2018 HISTORY: weakness TECHNIQUE: Portable chest COMPARISON: 04/15/2018 FINDINGS: Heart size appears enlarged and mildly increased compared to prior. There is mild prominence of central vascular markings similar to prior. There is no dense consolidation, pleural effusion, or pneumothorax identified. IMPRESSION: Cardiomegaly, with mild increase in heart size compared to prior. Mild prominence of central vascular markings. Electronically signed by Eduard Reeder 05/01/2018 11:29 AM
--- NOTE | 2018-05-01 16:01 | HISTORY AND PHYSICAL ---
CHIEF COMPLAINT: Deconditioning, no help at home. HISTORY OF PRESENT ILLNESS: She is a 63-year-old morbidly obese white female patient of Dr. Sesay, discharged from the [facility] yesterday morning from the previous hospitalization for left fibula fracture. She was not able to do her activities of daily living, and as a result, she came to the emergency room. All the workup was essentially unremarkable. Basically she is here for transitioning to long-term care. She has some black stools which are heme-negative since she has been on iron replacement therapy. I will discuss with the social work associate. We will expedite for long-term placement tomorrow without doing additional paperwork and staying here for 3 more days. She denies of any complaints. PAST MEDICAL HISTORY: Morbid obesity, hypertension, paroxysmal atrial fibrillation, chronic anemia, osteoarthritis, chronic venous stasis dermatitis, chronic renal failure stage 3, left fibula fracture, hypothyroidism. PAST SURGICAL HISTORY: History of bariatric surgery. MEDICATIONS: Amlodipine 5 mg daily, buspirone 15 p.o. b.i.d., citalopram ( Celexa) 10 mg daily, Synthroid 50 mcg daily, amiodarone 200 daily, Eliquis 5 mg p.o. b.i.d., Icar C Plus 1 tablet p.o. b.i.d., Macrobid 100 b.i.d., [place] 7.5 t.i.d. as needed. ALLERGIES: Bactrim. SOCIAL HISTORY: She is . Nonsmoker. No help at home. FAMILY HISTORY: As per the previous HPI. REVIEW OF SYSTEMS: HEENT: No headache. No vision problem. No earache. No sore throat. Neck: No goiter. No lymphadenopathy. Cardiopulmonary: Irregular heart beat in sinus. No chest pain, shortness of breath, PND, orthopnea. Gastrointestinal: No nausea/vomiting, abdominal pain. Musculoskeletal: Pain of the left knee, left ankle. Neurological: No neurological symptoms or weakness. PHYSICAL EXAMINATION: VITAL SIGNS: Temperature is 97 degrees, pulse rate is 83, blood pressure 110/ 50. HEIGHT/WEIGHT: 6 feet 1 inch, 330 pounds. HEENT: Slightly pale NECK: Supple. CHEST: Poor air entry. HEART: Distant heart sounds. ABDOMEN: Belly is soft, obese. EXTREMITIES: Chronic venous stasis dermatitis changes noted in both legs. NEUROLOGICAL: No obvious neurological deficits. Exam is suboptimal due to morbid obesity. DIAGNOSTIC STUDIES: CBC: White cell count 5.4, hematocrit 30, platelets 262, 000. D-dimer slightly positive. SMA-7: Sodium 140, potassium 4.3, BUN 33, creatinine 1.8. ProBNP is normal. Cardiac enzymes were normal. Chest x-ray: Cardiomegaly, stable. CT head: Small bilateral occipital infarct. ASSESSMENT AND PLAN: 1. Left fibular fracture, stable. 2. Morbid obesity. Needs some assistance for activities of daily living. 3. Paroxysmal atrial fibrillation (PAF). On Cordarone and Eliquis. 4. Chronic kidney disease. Baseline creatinine stable. 5. Chronic anxiety/depression. On BuSpar and Celexa. 6. Hypothyroidism. Synthroid. 7. Chronic urinary tract infection (UTI). On Macrobid. 8. No additional workup. 9. We will attempt to discharge in the morning from the previous paperwork, and we will discuss with the social work associate in the morning for long-term placement. cc: Omar Tsang MD [facility]
[2018-05-01] MEDS: ELIQUIS PO SCH (23:35)
[2018-05-01] MEDS: MACROBID PO SCH (23:35)
[2018-05-01] MEDS: ICAR-C PO SCH (23:35)
[2018-05-01] MEDS: BUSPAR PO SCH (23:35)
[2018-05-02] MEDS: SSD CREAM TOP SCH ×2 (05:02→10:00)
[2018-05-02] MEDS ORDERED: MYCOSTATIN POWDER TOP SCH (09:00)
--- NOTE | 2018-05-02 09:31 | EKG Report ---
Test Performed on : 05/01/2018 02:30:01 AM Test Reason : weakness Blood Pressure : / mmHG Vent. Rate : 084 BPM Atrial Rate : 097 BPM P-R Int : 000 ms QRS Dur : 166 ms QT Int : 474 ms P-R-T Axes : 000 -62 021 degrees QTc Int : 560 ms Atrial fibrillation. Right bundle branch block Left anterior fascicular block Bifascicular block Possible Lateral infarct , age undetermined Abnormal ECG When compared with ECG of 15-APR-2018 09:18, (Unconfirmed) T wave inversion less evident in Anterior leads Nonspecific T wave abnormality, worse in Lateral leads Unconfirmed Result
[2018-05-02] MEDS: MACROBID PO SCH ×2 (09:59→23:05)
[2018-05-02] MEDS: BUSPAR PO SCH ×2 (09:59→23:05)
[2018-05-02] MEDS: CELEXA PO SCH (09:59)
[2018-05-02] MEDS: SYNTHROID PO SCH (09:59)
[2018-05-02] MEDS: CORDARONE PO SCH (09:59)
[2018-05-02] MEDS: ELIQUIS PO SCH ×2 (10:00→23:04)
[2018-05-02] MEDS: ICAR-C PO SCH ×2 (10:00→23:04)
[2018-05-02] MEDS: NORVASC PO SCH (10:00)
[2018-05-02] MEDS: NORCO-7.5 PO PRN (15:52)
--- NOTE | 2018-05-02 19:48 | PROGRESS NOTE ---
DATE: 05/02/2018 SUBJECT: Patient is here for transitioning to long-term care and waiting for placement. She is medically stable. EXAM: Temperature is 98 degrees, pulse is 77, blood pressure 121/62.HEENT: Within normal limits. Slightly pale. Chest: Clear. Heart: Sounds are regular. Belly: Soft, obese, nontender. No obvious neurological deficits. ASSESSMENT AND PLAN: 1. Left fibula fracture stable. 2. Morbid obesity stable. 3. Deconditioning with comorbid conditions. Will social work manager for go to rehab in [facility] under Dr. Sesay. Will do the paperwork and the discharge summary. LEVEL OF DOCUMENTATION: 15 minutes. cc: Omar Tsang MD
[2018-05-03] MEDS: NORCO-7.5 PO PRN ×2 (00:22→16:33)
[2018-05-03] MEDS: SSD CREAM TOP SCH (00:23)
--- NOTE | 2018-05-03 04:13 | DISCHARGE SUMMARY ---
ADMISSION DATE: 05/01/2018 DISCHARGE DATE: 05/03/2018 DISCHARGING DIAGNOSES: 1. Deconditioning with chronic left leg pain due to left fibula fracture. 2. Morbid obesity. 3. Hypertension. 4. Paroxysmal atrial fibrillation. 5. Chronic anemia stable. 6. Osteoarthritis. 7. Chronic venous stasis dermatitis in both feet. 8. Chronic renal failure stage 3. Creatinine 1.8. 9. Hypothyroidism. 10. UTI. BRIEF HISTORY: Please see the H and P that was done on 05/01/2018. In brief, she is a 63-year- old morbidly obese female with the above problems. She was readmitted from home after she just left from [facility]. She was discharged about 3 weeks ago. She was not able to do her activities at home. She wants to go back to [facility] on long-term care. Apparently, it is over the weekend and paperwork was initiated. Basic workup was negative. She is passing black stools. Hemoccult negative. It is due to replacement of iron. Metal Crafts Teacher was consulted. Patient wants to go back to the same place at [facility], and resume the care by Dr. Sesay. LABORATORY: CBC: White cell count 5.4, hematocrit 30, and platelets 262,000. D-dimer 2.2. SMA 7. Sodium 140, potassium 4.3, chloride 107, BUN 33, creatinine 1.8, and glucose 100. ProBNP 928. Urinalysis is clear. Occult stool was negative. DIAGNOSTIC: Chest x-ray with cardiomegaly. Stable. CT head with chronic microvascular ischemic changes. MEDICATIONS: 1. Amlodipine 5 mg daily. 2. Buspirone 15 p.o. b.i.d. 3. Celexa 10 mg daily. 4. Synthroid 50 mcg daily. 5. Nystatin 1 application tab daily. 6. SSD cream one application b.i.d. 7. Amiodarone 200 daily. 8. Eliquis 5 mg p.o. b.i.d. 9. Icar C Plus 1 tablet p.o. b.i.d. 10. Macrobid 100 p.o. b.i.d. for 4 capsules. 11. [place] as needed for pain. FOLLOW UP: Dr. Sesay is going to follow up next week. cc: Omar Tsang MD
[2018-05-03] MEDS: MACROBID PO SCH (09:28)
[2018-05-03] MEDS: SYNTHROID PO SCH (09:28)
[2018-05-03] MEDS: CELEXA PO SCH (09:28)
[2018-05-03] MEDS: ELIQUIS PO SCH (09:28)
[2018-05-03] MEDS: CORDARONE PO SCH (09:28)
[2018-05-03] MEDS: NORVASC PO SCH (09:28)
[2018-05-03] MEDS: ICAR-C PO SCH (09:28)
[2018-05-03] MEDS: BUSPAR PO SCH (09:28)
[2018-05-03 15:16] VITALS: BP 114/66
== END 2018-05-03 19:58 | DRG 948 ==
LOC: SUPCPDRO → ED 01:27 → 4N 11:08
PROVIDERS: ADMIT Internal Medicine; ATTEND Internal Medicine
CPT/HCPCS: 51701; 70450; 71010; 71045; 80048; 81001; 82270; 82948; 83880; 84484; 85025; 85379; 93005; 99285; A9270; J7030; P9612; XXXXX